=== PATIENT | male | born 2000 | race Caucasian/White ===

== ENCOUNTER 2019-06-06 09:07 | Emergency (ER) | payer SELFPAY ==
[~2019-06-06] VITALS: Ht 172.7 cm; Wt 63.5 kg
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
--- NOTE | 2019-06-06 09:10 | NUR ---
SEE CODE SHEET FOR MEDS GIVEN.
[2019-06-06 09:24] VITALS: BP 0/0
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
--- NOTE | 2019-06-06 09:27 | NUR ---
[place] [facility] IS AT BEDSIDE.
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
--- NOTE | 2019-06-06 10:00 | NUR ---
CALL TO [facility]LO[facility] [employer] TILE SPOKE WITH [employer]--UTILIZATION MANAGEMENT NURSE TO CALL BACK
--- NOTE | 2019-06-06 10:30 | NUR ---
[facility]; ANGELICA KNIGHT, .
--- NOTE | 2019-06-06 11:45 | NUR ---
[facility]. DOCUMENT REVIEW SPECIALIST AT BEDSIDE ACCOMPAINED WITH OFFICER Yoana ZALDIVAR.
[2019-06-06 13:25] VITALS: BP 0/0
--- NOTE | 2019-06-06 13:25 | NUR ---
[facility]; ANGELICA KNIGHT. BODY LEFT FACILITY WITH SILK BRUSHER AT THIS TIME.
== END 2019-06-06 09:20 | disposition expired ==
LOC: MED 09:07
DX: I46.9 Cardiac arrest, cause unspecified (principal); F32.9 Major depressive disorder, single episode, unspecified
CPT/HCPCS: 92950; 99285